=== PATIENT | male | born 1975 | race Two or more races ===

== ENCOUNTER 2024-04-28 21:22 | Emergency (ER) | payer BC ==
[~2024-04-28] VITALS: Ht 165.1 cm; Wt 66.7 kg
[2024-04-28] MEDS ORDERED: CEFTRIAXONE SODIUM 1,000 MG VIAL IM ONE (22:15)
== END 2024-04-28 23:58 | disposition home or self-care (01) ==
LOC: ER 21:23
DX: S81.822A Laceration with foreign body, left lower leg, initial encounter (principal); W45.8XXA Other foreign body or object entering through skin, initial encounter; Y93.89 Activity, other specified; Y92.89 Other specified places as the place of occurrence of the external cause